=== PATIENT | male | born 1980 | race Caucasian/White ===

== ENCOUNTER 2024-08-07 16:58 | Emergency (ER) | payer SELFPAY ==
[2024-08-07 17:01] VITALS: BP 157/90; PULSE 87; RESP 17; TEMP 36.6; O2SAT 98; BMI 36.5
--- NOTE | 2024-08-07 17:06 | DI.RAD.S_ITS ---
PROCEDURE: XR CHEST 1V INDICATIONS: chest pain TECHNIQUE: One view of the chest was acquired. COMPARISON: None. FINDINGS: Surgical changes and devices: None. Lungs and pleura: Lungs are clear. No pleural effusions or pneumothorax. Mediastinum: Mediastinal contours appear normal. Heart size is normal. Bones and chest wall: No suspicious bony lesions. Overlying soft tissues appear unremarkable. IMPRESSION: No acute cardiopulmonary abnormality is seen. Approved by: Gareth Hurtado M.D. on 08/07/2024 at 17:26
[2024-08-07 17:11] VITALS: PULSE 86; RESP 24
[2024-08-07 17:27] LABS: Add Manual Diff / Slide Review NO; Basophils Absolute Auto 0 /uL (0-100); Basophils Percent Auto 0.4 % (0-2); Eosinophils Absolute Auto 100 /uL (0-450); Eosinophils Percent Auto 1.7 % (2-4); Hematocrit 45.5 % (41-53); Hemoglobin 15.3 g/dL (13.5-17.5); Lymphocytes Absolute Auto 1700 /uL (1100-4500); Mean Corpuscular HGB Conc 33.6 % (30-36); Mean Corpuscular Hemoglobin 30.5 PG (26-34); Mean Corpuscular Volume 90.7 fL (80-100); Monocytes Absolute Auto 800 /uL (0-900); Monocytes Percent Auto 16.3 % (3-14); Neutrophils Absolute Auto 2300 /uL (1500-7000); Neutrophils Percent Auto 47.6 % (50-75); Platelet Count 261 X10^3/uL (150-400); Red Blood Cell Count 5.02 X10^6/uL (4.5-5.9); Red Cell Distribution Width 14.2 % (11.6-14.8); White Blood Cell Count 4.9 X10^3/uL (4.5-11.0)
--- NOTE | 2024-08-07 17:29 | EKG_ITS ---
[address] [address] Test Date: 2024-08-07 Pat Name: Hill Sanches Department: [facility] Room: Gender: Male Brick Pointer: PEREZ : 1980 Requested By: Order Number: [id number] Reading MD: Ugo Carvajal Measurements Intervals [place] Rate: 81 P: 39 SD: 166 QRS: 28 QRSD: 94 T: 36 QT: 356 QTc: 413 Interpretive Statements Normal sinus rhythm Electronically Signed On 08-10-2024 18:49:52 PST by Ugo Carvajal
--- NOTE | 2024-08-07 17:29 | PC.NURSE ---
Patient has confirmed covid, here today because he reports ongoing fluttering in his chest since last night. Hx of Afib and ablation. Patient states that he knows he hasnt been drinking enough water and feels very dehydrated and feels a lot of chest congestion
[2024-08-07 17:30] VITALS: PULSE 82; O2SAT 96
[2024-08-07 17:34] LABS: INR 1.1 (0.9-1.3); Prothrombin Time 12.5 SECONDS (9.4-12.5)
[2024-08-07 17:37] LABS: PTT Partial Thromboplastin Tim 34 SECONDS (25.1-36.5)
[2024-08-07 17:38] LABS: Alanine Aminotransferase 57 IU/L (<50); Albumin 4.2 g/dL (3.5-5.0); Albumin Globulin Ratio 1.2 (1.0-2.8); Alkaline Phosphatase 54 U/L (38-126); Aspartate Aminotransferase 33 IU/L (17-59); BUN Creatinine Ratio 14.5 (6-22); Bilirubin Total 0.3 mg/dL (0.2-1.3); Blood Urea Nitrogen 10 mg/dL (9-20); Calcium 9.1 mg/dL (8.4-10.2); Carbon Dioxide 22 mmol/L (22-32); Chloride 106 mmol/L (98-107); Creatine Kinase 172 U/L (55-170); Estimated Glomerular Filt Rate > 60 mL/min (>60); Globulin 3.4 g/dL (1.7-4.1); Glucose 129 mg/dL (70-100); HEMOLYSIS < 15 (0-50); Lipase 133 U/L (23-300); Magnesium 1.8 mg/dL (1.6-2.3); Potassium 3.7 mmol/L (3.4-5.1); Sodium 137 mmol/L (137-145); Total Protein 7.6 g/dL (6.3-8.2)
[2024-08-07 17:40] VITALS: BP 128/78; PULSE 84; RESP 22; O2SAT 95
[2024-08-07 17:50] LABS: NT-proBNP (BNP-Adult 18+) 26 pg/mL (<125); Troponin I < 0.012 ng/mL (0.01-0.034)
[2024-08-07 18:00] VITALS: BP 125/72; PULSE 77; RESP 19; O2SAT 95
--- NOTE | 2024-08-07 18:06 | ED.CHESTPAIN ---
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 He has had prior initial COVID vaccination, no recent boosters. He has had occasional palpitation symptoms, no sustained fast heart rate symptoms, not known to be in atrial fibrillation again, with some shortness of breath with coughing. He would like inhaler use. He denies chest discomfort. Also has no discomfort in his back, arm, neck, jaw. Related Data Previous Rx's Medication Instructions Recorded albuterol sulfate 90 mcg/actuation 2 puff inhalation Q6H PRN 08/07/24 aerosol inhaler shortness of breath or wheezing #6.7 grams nirmatrelvir 300 mg (150 mg See Rx Instructions PO .COMPLEX 08/07/24 x2)-ritonavir 100 mg tablet,dose #30 ea pack (Paxlovid) Allergies Allergy/AdvReac Type Severity Reaction Status Date / Time No Known Drug Allergies Allergy Verified 08/07/24 17:01 Review of Systems Review of Systems Narrative: See HPI Patient History Social History Smoking Status: Current every day smoker Smoking Status: Current every day smoker alcohol intake frequency: a few times a week Substance Use Type: does not use Exam Narrative Exam Narrative: GENERAL: Well-developed patient, in mild distress. HEAD: Atraumatic. Normocephalic. EYES: Pupils equal round and reactive. Extraocular motions intact. No scleral icterus. No injection or drainage. ENT: Nose without bleeding, purulent drainage. Throat without erythema, tonsillar hypertrophy or exudate. Airway patent. NECK: Trachea midline. Non tender CARDIOVASCULAR: Regular rate and rhythm without murmurs, gallops, or rubs. RESPIRATORY: Clear to auscultation. Breath sounds equal bilaterally. No wheezes, rales, or rhonchi. GASTROINTESTINAL: Abdomen soft, non-tender, nondistended. EXTREMITIES: No edema or joint tenderness. BACK: Nontender without deformity or crepitance. No flank tenderness. NEURO: AOx3. Motor functions grossly nonfocal SKIN: No rash or erythema of visible areas Initial Vital Signs Initial Vital Signs: Vital Signs Temperature 97.8 F 08/07/24 17:01 Pulse Rate 87 08/07/24 17:01 Respiratory Rate 17 08/07/24 17:01 Blood Pressure 157/90 H 08/07/24 17:01 Pulse Oximetry 98 08/07/24 17:01 Oxygen Delivery Method Room Air 08/07/24 17:01 Course Orders Ordered: ED Orders 08/07/24 17:06 XR chest 1V Stat EKG-12 Lead Stat 08/07/24 17:21 Complete Blood Count AUTO DIFF Stat Comprehensive Metabolic Panel Stat Lipase Stat Magnesium Stat NT-proBNP (BNP-Adult 18+) Stat PTT Partial Thromboplastin Minor Stat Prothrombin Time INR Stat Troponin & CK Cardiac Panel Stat Vital Signs Vital signs: Vital Signs - 8 hr 08/07/24 17:01 08/07/24 17:11 08/07/24 17:30 Temperature 97.8 F Pulse Rate 87 86 82 Respiratory Rate 17 24 Blood Pressure 157/90 H Pulse Oximetry 98 96 Oxygen Delivery Method Room Air 08/07/24 17:40 08/07/24 17:40 08/07/24 18:00 Temperature Pulse Rate 84 77 Respiratory Rate 22 19 Blood Pressure 128/78 Pulse Oximetry 95 95 Oxygen Delivery Method 08/07/24 18:00 08/07/24 18:30 08/07/24 18:30 Temperature Pulse Rate 77 Respiratory Rate 16 Blood Pressure 125/72 132/97 H Pulse Oximetry 97 Oxygen Delivery Method MDM - Chest Pain Lab Data Attestation: I reviewed the patient's lab results. Lab results narrative: White blood cell count 4900, hemoglobin 15.3, platelets adequate. Basic metabolic panel unremarkable. Liver functions normal. Lipase normal. Troponin negative. 08/07/24 17:21 08/07/24 17:21 Labs: Lab Results 08/07/24 Range/Units 17:21 WBC 4.9 (4.5-11.0) X10^3/uL RBC 5.02 (4.5-5.9) X10^6/uL Hgb 15.3 (13.5-17.5) g/dL Hct 45.5 (41-53) % MCV 90.7 (80-100) fL MCH 30.5 (26-34) PG MCHC 33.6 (30-36) % RDW 14.2 (11.6-14.8) % Plt Count 261 (150-400) X10^3/uL Neut % (Auto) 47.6 L (50-75) % Lymph % (Auto) 34.0 (25-40) % Door % (Auto) 16.3 H (3-14) % Eos % (Auto) 1.7 L (2-4) % Baso % (Auto) 0.4 (0-2) % Neut # (Auto) 2300 (9390-9842) /uL Lymph # (Auto) 1700 (1826-4754) /uL Door # (Auto) 800 (0-900) /uL Eos # (Auto) 100 (0-450) /uL Baso # (Auto) 0 (0-100) /uL PT 12.5 (9.4-12.5) SECONDS INR 1.1 (0.9-1.3) APTT 34 (25.1-36.5) SECONDS Sodium 137 (137-145) mmol/L Potassium 3.7 (3.4-5.1) mmol/L Chloride 106 (98-107) mmol/L Carbon Dioxide 22 (22-32) mmol/L BUN 10 (9-20) mg/dL Creatinine 0.69 (0.66-1.25) mg/dL Estimated GFR > 60 (>60) mL/min BUN/Creatinine Ratio 14.5 (6-22) Glucose 129 H (70-100) mg/dL Calcium 9.1 (8.4-10.2) mg/dL Magnesium 1.8 (1.6-2.3) mg/dL Total Bilirubin 0.3 (0.2-1.3) mg/dL AST 33 (17-59) IU/L ALT 57 H (<50) IU/L Alkaline Phosphatase 54 (38-126) U/L Total Creatine Kinase 172 H (55-170) U/L Troponin I < 0.012 (0.01-0.034) ng/mL NT-Pro-B Natriuret Pep 26 (<125) pg/mL Total Protein 7.6 (6.3-8.2) g/dL Albumin 4.2 (3.5-5.0) g/dL Globulin 3.4 (1.7-4.1) g/dL Albumin/Globulin Ratio 1.2 (1.0-2.8) Lipase 133 (23-300) U/L Imaging Data Chest x-ray: Radiologist's Impression: [address] [address] XRay Report Signed Patient: Hill Sanches MR#: [id number] : 1980 Acct:[id number] Age/Sex: 43 / M Date of Service: 08/07/24 Loc: ED Accession Number: [id number] Procedure: XR chest 1V Ordering Provider: Katherine Krishnan D.O. PROCEDURE: XR CHEST 1V INDICATIONS: chest pain TECHNIQUE: One view of the chest was acquired. COMPARISON: None. FINDINGS: Surgical changes and devices: None. Lungs and pleura: Lungs are clear. No pleural effusions or pneumothorax. Mediastinum: Mediastinal contours appear normal. Heart size is normal. Bones and chest wall: No suspicious bony lesions. Overlying soft tissues appear unremarkable. IMPRESSION: No acute cardiopulmonary abnormality is seen. Approved by: Gareth Hurtado M.D. on 08/07/2024 at 17:26 ECG Data Attestation: I personally reviewed and interpreted this ECG as follows: Interpretation: Normal sinus rhythm with rate of 81, no obvious ST segment elevation or depression changes. Flat T-waves lead 3 but upright in contiguous inferior leads. IN 166, QRS 94, QTC 413. MDM Narrative Medical decision making narrative: 43-year-old male with history of smoking, 3 days cough upper respiratory infection, coworkers on tugboat with COVID diagnosis, COVID test on tugboat positive, interested in antiviral therapy. Also has history of atrial fibrillation, status post remote ablation, some shortness of breath, requesting inhaler use. EKG normal sinus rhythm, no obvious ischemic changes, no ectopy on monitor, chest x-ray negative, electrolytes negative, troponin negative. Patient informed inhaler might cause palpitations, he would still like to try this, eRx albuterol inhaler sent to his pharmacy. Paxlovid prescription eRx sent to his pharmacy. Return precautions discussed. 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 Symptoms less than 5 days, you are interested in using Paxlovid antiviral therapy, sent to your pharmacy in home can [facility]. History of atrial fibrillation, status post prior ablation procedure, some recent palpitation symptoms, no atrial fibrillation confirmed here in the emergency department. Request for use of inhaler, though this can cause palpitations, possible risks of abnormal heart rhythm such as atrial fibrillation. If you feel palpitations using the inhaler please stop using the inhaler. Take antivirals as directed. Off work for the next 3 days. Recheck with your regular primary care doctor if not improving in the next 2-3 days. Return to this/nearest emergency department for any change worsening symptoms or any concerns prior Prescriptions: New Paxlovid 300 mg (150 mg x 2)-100 mg tablets,dose pack See Rx Instructions .ROUTE .COMPLEX Qty: 30 0RF Rx Instructions: take TWO 150 mg tablets of nirmatrelvir with ONE 100 mg tablet of ritonavir twice daily for 5 days albuterol sulfate 90 mcg/actuation HFA aerosol inhaler 2 puff inhalation Q6H PRN (Reason: shortness of breath or wheezing) Qty: 6.7 0RF Stand Alone Forms: Patient Portal/API/Survey, Work Release Note
[2024-08-07 18:30] VITALS: BP 132/97; PULSE 77; RESP 16; O2SAT 97
== END 2024-08-07 18:50 | disposition home or self-care (01) ==
PROVIDERS: Emergency Medicine; Emergency Provider Emergency Medicine
DX: U07.1 COVID-19 (principal); R00.2 Palpitations; R07.9 Chest pain, unspecified; R05.9 Cough, unspecified
CPT/HCPCS: 36415; 71045; 80053; 82550; 83690; 83735; 83880; 84484; 85025; 85610; 85730; 93005; 99283; 99284

== ENCOUNTER → 2025-08-11 10:08 | Outpatient (CLI) | payer BC, SELFPAY ==
--- NOTE | 2025-08-11 10:10 | DI.RAD.S_ITS ---
PROCEDURE: XR RIBS LT MIN 3V W CXR1V
== END ==
PROVIDERS: Referring Provider Physician Assistant; Visit Provider Physician Assistant
DX: S29.8XXA Other specified injuries of thorax, initial encounter (principal); W19.XXXA Unspecified fall, initial encounter
CPT/HCPCS: 71101